=== PATIENT | female | born 1965 ===

== ENCOUNTER → 2025-06-03 12:41 | Outpatient (CLI) | payer OTHER, SELFPAY ==
--- NOTE | 2025-06-03 12:46 | DI.US.S_ITS ---
PROCEDURE: US RENAL COMPLETE INDICATIONS: microscopic hematuria TECHNIQUE: Real-time scanning was performed of the kidneys and bladder, with image documentation. COMPARISON: None. FINDINGS: Kidneys: Kidneys are normal in size. Right kidney measures 10.3 cm long; left kidney measures 10.9 cm long. Right renal cortical thickness is 1.3 cm; left renal cortical thickness is 1.3 cm. Renal cortical echotexture is normal. No hydronephrosis or nephrolithiasis. No suspicious solid mass lesions. Bladder: Pre-void bladder volume is 324 mL. Post-void residual is 107 mL. Pre-void images demonstrate no intraluminal masses or stones. On pre-void images, bilateral ureteral jets are noted with color Doppler interrogation. (Of note, ureteral jets may not be detectable in up to 25% of cases due to insufficient differences in specific gravity between ureteral and bladder urine). Miscellaneous: No free pelvic fluid. IMPRESSION: Normal ultrasound the kidneys Approved by: Vishnu Higgins M.D. on 06/03/2025 at 17:14
== END ==
LOC: US 12:44
PROVIDERS: PCP Family Medicine; Referring Provider Family Medicine; Visit Provider Family Medicine
DX: R31.29 Other microscopic hematuria (principal); R80.9 Proteinuria, unspecified
CPT/HCPCS: 76770